=== PATIENT | female | born 1980 | race Caucasian/White ===

== ENCOUNTER 2021-10-10 19:46 | Emergency (ER) | payer MEDICAID ==
[~2021-10-10] VITALS: Ht 167.6 cm; Wt 74.8 kg
[2021-10-10 19:57] VITALS: BP_SYST 127
[2021-10-10 20:34] LABS: BILIRUBIN,URINE NEGATIVE (NEGATIVE); BLOOD, URINE NEGATIVE (NEGATIVE); COLOR,URINE YELLOW (YELLOW); GLUCOSE,URINE NEGATIVE (NEGATIVE); KETONES,URINE TRACE (NEGATIVE); LEUKOCYTE ESTERASE ,URINE TRACE (NEGATIVE); NITRITE, URINE POSITIVE (NEGATIVE); PROTEIN URINE NEGATIVE (NEGATIVE)
[2021-10-10 20:44] LABS: CLARITY/URINE HAZY (CLEAR)
[2021-10-10 20:48] LABS: HCG,QUAL RESULT NEGATIVE (NEGATIVE)
[2021-10-10 20:49] LABS: BACTERIA,URINE MODERATE /HPF (None Seen); RBC,URINE NONE SEEN /HPF (0-3)
[2021-10-10 20:50] LABS: MUCUS,URINE None Seen /LPF (None Seen); YEAST,URINE Few /HPF (None Seen)
[2021-10-10] MEDS ORDERED: CEPH-548 PO (21:13)
[2021-10-10] MEDS ORDERED: FLUCONAZOLE 200 MG TABLET (DIFLUCAN) PO ONE (21:15)
[2021-10-10] MEDS ORDERED: cephALEXin 500 MG CAPSULE PO ONE (21:15)
[2021-10-10] MEDS ORDERED: CLOT21CR12 VG (21:16)
[2021-10-10 21:32] VITALS: BP_SYST 122
== END 2021-10-10 21:32 | disposition home or self-care (01) ==
LOC: SED 19:46
DX: N39.0 Urinary tract infection, site not specified (principal); B37.9 Candidiasis, unspecified
CPT/HCPCS: 36415; 81000; 84703; 87086; 87491; 99284

== ENCOUNTER 2022-02-15 14:32 | Emergency (ER) | payer OTHER, MEDICAID ==
[~2022-02-15] VITALS: Ht 167.6 cm; Wt 73.0 kg
[2022-02-15 14:32] VITALS: BP_SYST 119
[~2022-02-15 14:32] MED LIST: CEPH-548 PO; CLOT21CR12 VG
[2022-02-15 15:55] LABS: CALCIUM 8.4 mg/dL (8.4-11.0); CREATININE 0.89 mg/dL (0.55-1.30); POTASSIUM 3.6 mmol/L (3.5-5.1)
[2022-02-15 15:56] LABS: INR 0.9 (0.8-1.2); PROTHROMBIN TIME 9.9 SECS (9.5-12.5)
[2022-02-15 16:01] LABS: ALBUMIN 3.5 g/dL (3.4-4.8); TOTAL BILIRUBIN 0.3 mg/dL (0.0-1.0)
[2022-02-15 16:13] LABS: HEMOGLOBIN 7.9 g/dL (12.0-16.0)
[2022-02-15 16:21] LABS: MEAN CORPUSCULAR HEMOGLOBIN 18 pg (27-31); MEAN CORPUSCULAR HGB CONC 30 % (32-36); MEAN CORPUSCULAR VOLUME 59 fL (79.0-98.0); PLATELET COUNT (AUTO) 367 K/uL (130-430); RED BLOOD CELL COUNT(AUTO) 4.39 MIL/uL (4.2-6.2)
[2022-02-15 17:16] VITALS: BP_SYST 121
[2022-02-15 17:22] LABS: BAND % (MANUAL) 1 % (0-6); LYMPHOCYTES % (MANUAL) 32 % (20-46); MONOCYTES % (MANUAL) 5 % (0-11)
[2022-02-15 18:12] LABS: BASOPHILS % (MANUAL) 0 % (0-2); EOSINOPHILS % (MANUAL) 0 % (0-7)
== END 2022-02-15 17:17 | disposition home or self-care (01) ==
LOC: SED 14:32
DX: D64.9 Anemia, unspecified (principal); R53.1 Weakness; R42 Dizziness and giddiness; Z88.0 Allergy status to penicillin; Z79.899 Other long term (current) drug therapy
CPT/HCPCS: 36415; 80053; 82150; 83605; 83690; 85007; 85027; 85610-TC; 85730-TC; 86886; 86900; 86901; 99283

== ENCOUNTER 2022-09-23 23:54 | Emergency (ER) | payer MEDICAID, OTHER ==
[~2022-09-23] VITALS: Ht 167.6 cm; Wt 70.3 kg
[2022-09-23 23:58] VITALS: BP_SYST 125
[2022-09-24 02:12] LABS: BILIRUBIN,URINE NEGATIVE (NEGATIVE); BLOOD, URINE NEGATIVE (NEGATIVE); COLOR,URINE YELLOW (YELLOW); GLUCOSE,URINE NEGATIVE (NEGATIVE); KETONES,URINE NEGATIVE (NEGATIVE); LEUKOCYTE ESTERASE ,URINE NEGATIVE (NEGATIVE); NITRITE, URINE POSITIVE (NEGATIVE); PROTEIN URINE NEGATIVE (NEGATIVE)
[2022-09-24] MEDS ORDERED: AZEL6DRO5 EACH EYE (02:25)
[2022-09-24] MEDS ORDERED: SERT100T PO (02:25)
[2022-09-24] MEDS ORDERED: LORA10TA68 PO (02:25)
[2022-09-24] MEDS ORDERED: CLON0.5T4 PO (02:25)
[2022-09-24] MEDS ORDERED: NITR-85 PO (02:28)
[2022-09-24 02:33] LABS: BACTERIA,URINE MODERATE /HPF (None Seen); RBC,URINE NONE SEEN /HPF (0-3); WBC,URINE 0-3 /HPF (0-3)
[2022-09-24 02:34] LABS: MUCUS,URINE 1+ /LPF (None Seen)
[2022-09-24 02:39] VITALS: BP_SYST 125
[2022-09-24 02:39] LABS: CLARITY/URINE SLIGHTLY CLOUDY (CLEAR)
== END 2022-09-24 02:24 | disposition home or self-care (01) ==
LOC: SED 23:54
DX: H10.13 Acute atopic conjunctivitis, bilateral (principal); N39.0 Urinary tract infection, site not specified; Z76.0 Encounter for issue of repeat prescription; F41.9 Anxiety disorder, unspecified; F32.A Depression, unspecified; Z88.0 Allergy status to penicillin; Z79.899 Other long term (current) drug therapy
CPT/HCPCS: 81000; 81003; 87086; 99283

== ENCOUNTER 2022-11-21 15:25 | Emergency (ER) | payer MEDICAID ==
[~2022-11-21] VITALS: Ht 162.6 cm; Wt 63.5 kg
[~2022-11-21 15:25] MED LIST changes: +AZEL6DRO5 EACH EYE; +CLON0.5T4 PO; +LORA10TA68 PO; +NITR-85 PO; +SERT100T PO
[2022-11-21 15:55] VITALS: BP_SYST 128; PULSE 88; RESP 18; TEMP 98.3; O2SAT 98
--- NOTE | 2022-11-21 16:01 | NUR ---
Pt brought by self, A&Ox4, pt presents to ER with L eye pain, also c/o pain/burning with urination x 2 days, skin pink and warm, VSS, respirations even and unlabored.
--- NOTE | 2022-11-21 16:10 | NUR ---
Dr Lindsey evaluating patient at bedside
[2022-11-21 16:19] LABS: BILIRUBIN,URINE NEGATIVE (NEGATIVE); BLOOD, URINE NEGATIVE (NEGATIVE); COLOR,URINE YELLOW (YELLOW); GLUCOSE,URINE NEGATIVE (NEGATIVE); KETONES,URINE NEGATIVE (NEGATIVE); LEUKOCYTE ESTERASE ,URINE TRACE (NEGATIVE); NITRITE, URINE POSITIVE (NEGATIVE); PROTEIN URINE TRACE (NEGATIVE)
[2022-11-21 16:23] LABS: CLARITY/URINE HAZY (CLEAR)
[2022-11-21 16:37] LABS: BACTERIA,URINE MANY /HPF (None Seen); RBC,URINE 0-3 /HPF (0-3)
[2022-11-21] MEDS ORDERED: CEPH-548 PO (17:00)
--- NOTE | 2022-11-21 17:08 | NUR ---
Patient given written and verbal discharge instructions and verbalizes understanding. ER MD discussed with patient the results and treatment provided. Patient in stable condition. ID arm band removed. Rx of Cephalexin given. Patient educated on pain management and to follow up with PMD. Pain Scale 2/10 Opportunity for questions provided and answered. Medication side effect fact sheet provided.
[2022-11-21 17:09] VITALS: BP_SYST 128; PULSE 88; RESP 18; TEMP 98.3; O2SAT 98
--- NOTE | 2022-11-23 18:57 | NUR ---
RECEIVED LAB REPORT, DR DOS SANTOS INFORMED OF FINDINGS. HE STATES HE WILL SEND NEW RX TO PREFERRED PHARMACY. I ATTEMPTED TO CALL PT TO NOTIFY AND CALLED BOTH NUMBERS LISTED ON PATIENT DATA, BHUT NO ANSWER MULTIPLE TIMES. WILL REPORT OFF TO RACQUEL JOHNSON RN TO FOLLOW UP.
== END 2022-11-21 17:08 | disposition home or self-care (01) ==
LOC: SED 15:25
DX: N39.0 Urinary tract infection, site not specified (principal); H01.005 Unspecified blepharitis left lower eyelid; R30.0 Dysuria; H57.89 Other specified disorders of eye and adnexa; Z88.0 Allergy status to penicillin; Z79.899 Other long term (current) drug therapy
CPT/HCPCS: 81000; 87086; 99283

== ENCOUNTER 2023-01-16 17:25 | Emergency (ER) | payer MEDICAID ==
[~2023-01-16] VITALS: Ht 167.6 cm; Wt 79.4 kg
[2023-01-16 17:31] VITALS: BP_SYST 130; PULSE 89; RESP 18; TEMP 98.5; O2SAT 100
[2023-01-16 20:59] VITALS: BP_SYST 130; PULSE 89; RESP 18; TEMP 98.5; O2SAT 100
== END 2023-01-16 20:59 | disposition left against medical advice (07) ==
LOC: SED 17:25
DX: H92.02 Otalgia, left ear (principal); J02.9 Acute pharyngitis, unspecified; R30.9 Painful micturition, unspecified; Z53.21 Procedure and treatment not carried out due to patient leaving prior to being seen by health care provider
CPT/HCPCS: 99281

== ENCOUNTER 2023-05-24 16:39 | Emergency (ER) | payer OTHER ==
[~2023-05-24] VITALS: Ht 167.6 cm; Wt 74.8 kg
[2023-05-24 16:40] VITALS: BP_SYST 114; PULSE 77; RESP 18; TEMP 98.4; O2SAT 99
[2023-05-24] MEDS ORDERED: PRED20TA PO (18:16)
[2023-05-24] MEDS ORDERED: ACYC400T19 PO (18:16)
[2023-05-24 20:21] VITALS: BP_SYST 116; PULSE 68; RESP 19; TEMP 98.4; O2SAT 99
== END 2023-05-24 20:21 | disposition home or self-care (01) ==
LOC: SED 16:39
DX: G51.0 Bell's palsy (principal); Z88.0 Allergy status to penicillin; Z79.899 Other long term (current) drug therapy
CPT/HCPCS: 70450-TC; 76376; 99284